=== PATIENT | female | born 1995 | race Caucasian/White ===

== ENCOUNTER 2024-06-25 12:27 | Emergency (ER) | payer OTHER, SELFPAY ==
[2024-06-25 12:43] VITALS: BP 113/77; PULSE 74; TEMP 36.8; O2SAT 100; BMI 21.3
--- NOTE | 2024-06-25 13:12 | ED_ITS ---
Documented by User: CHAZ Luong 06/25/24 14:46 HPI - Wound/Laceration General Chief Complaint: Ear Stated Complaint: DOG BITE - [facility] Time Seen by Provider: 06/25/24 12:58 Source: patient Mode of arrival: walk-in Limitations: no limitations History of Present Illness HPI narrative: 29-year-old female presents to the emergency department with complaint of injury to her left ear. Patient works as a riveter hand, was trimming a great Juan José's nails, when the dog became startled and bit her left earlobe. She has some associated pain, tenderness. Bleeding is controlled. Unsure of last tetanus shot. States the dog's rabies shot is up-to-date as of January 2024. Denies any other injury. Quality:?Penetrating trauma Severity:?Mild Timing:?Injury occurred shortly prior to arrival, constant Context: Injury occurred while at work Modifying factors:?Pain worse with palpation Associated symptoms: As above Related Data Home Medications ?Medication ?Instructions ?Recorded ?Confirmed bupropion HCl 150 mg 24 hr tablet, 150 mg PO DAILY 06/25/24 06/25/24 extended release Previous Rx's ?Medication ?Instructions ?Recorded amoxicillin 875 mg-potassium 1 tab PO BID 3 days #6 tabs 06/25/24 clavulanate 125 mg tablet Allergies Allergy/AdvReac Type Severity Reaction Status Date / Time fluconazole (From Diflucan) Allergy Intermediate Swelling Verified 06/25/24 12:42 of Lip/Tongue/Throat Review of Systems ROS Narrative CONST: Denies diaphoresis, weakness ENT: No hearing changes. + Ear pain MS: Denies arthralgias, myalgias SKIN:? +wound.? Denies swelling NEURO: Denies weakness, numbness, paresthesias PFSH PFSH Social History Little interest or pleasure in doing things: not at all Feeling down, depressed, or hopeless: not at all Exam Narrative Exam Narrative: Vital signs noted Nurses notes reviewed CONST: Nontoxic, well appearing, well nourished, in no distress.? No diaphoresis.?? HENT: normocephalic. + 2cm laceration to the anterior aspect of her right ear lobe. No through and through. + mild tenderness. Bleeding controlled. CV: < 2 sec cap refill MS: no injury NEURO: Sensory intact throughout and distal to the injury SKIN: + laceration PSYCHIATRIC: normal mood, affect Constitutional Vital Signs, click to edit/add: Last Vital Signs Temp 98.3 F 06/25/24 12:43 Pulse 74 06/25/24 12:43 Resp 16 06/25/24 12:43 BP 113/77 06/25/24 12:43 Pulse Ox 100 06/25/24 12:43 O2 Del Method Room Air 06/25/24 12:43 Course Vital Signs Vital signs: Vital Signs Temperature 98.3 F 06/25/24 12:43 Pulse Rate 74 06/25/24 12:43 Respiratory Rate 16 06/25/24 12:43 Blood Pressure 113/77 06/25/24 12:43 Pulse Oximetry 100 06/25/24 12:43 Oxygen Delivery Method Room Air 06/25/24 12:43 Temperature 98.3 F 06/25/24 12:43 Pulse Rate 74 06/25/24 12:43 Respiratory Rate 16 06/25/24 12:43 Blood Pressure 113/77 06/25/24 12:43 Pulse Oximetry 100 06/25/24 12:43 Oxygen Delivery Method Room Air 06/25/24 12:43 MDM - Wound/Laceration MDM Narrative Medical decision making narrative: This is a pleasant 29-year-old female who presents to the emergency department for evaluation of injury to her left earlobe On arrival, afebrile, vital signs stable. On exam, nontoxic, well appearing patient, in no apparent distress. Patient has 2 cm, slightly irregular laceration to the anterior aspect of her earlobe. Does not go through and through. It does go along an area where she has a piercing. Jewelry not in place at this time. Bleeding is controlled. Simple laceration closed as noted in procedure note above without complication. Bacitracin ointment was applied. Favor left earlobe laceration Foreign body, deep structure involvement less likely based on exam History and Record Review Additional records reviewed: Immunizations Re-Evaluation: Wound repaired, patient improved Disposition ? The patient was discharged. Prescriptions sent to pharmacy:[facility] Wound care instructions given both verbally and on discharge paperwork Patient advised Ibuprofen/Tylenol as needed for pain Plan: Patient will be discharged to home.? Condition at time of disposition: stable, improved.? Advised to follow up with primary provider. Advised to return for any worsening and/or development of new, concerning signs or symptoms PLEASE NOTE: Portions of the medical record may have been produced using electronic public utilities sales representative and may contain errors with respect to translation of words which may not have been identified prior to finalization of the chart. Discharge Plan Discharge Chief Complaint: Ear Clinical Impression: Acute pain of left ear Simple laceration of left ear Qualifiers: Encounter type: initial encounter Qualified Code(s): S01.312A - Laceration without foreign body of left ear, initial encounter Patient Disposition: Home, Self-Care Time of Disposition Decision: 14:02 Condition: Good Mode of Transportation: Private Vehicle Prescriptions / Home Meds: New amoxicillin-pot clavulanate 875-125 mg tablet 1 tab PO BID 3 Days Qty: 6 0RF No Action bupropion HCl 150 mg tablet extended release 24 hr 150 mg PO DAILY Print Language: Norwegian Instructions: Laceration (DC) Additional Instructions: Laceration, Sutures ? You have been treated for a laceration (cut). ? Follow up with your doctor OR come back here OR go to the nearest Emergency Department to have your sutures (stitches) taken out. Sutures should be taken out in: 7-10 days. ? Use the following wound care instructions: Keep the wound clean and dry for the next 24 hours. You can wash the wound gently with soap and water. DO NOT allow your wound to soak in water (don?t do the dishes or go swimming, for example). You can shower, but do not rub your stitches too hard. Let the wound dry before putting another bandage on. Take off old dressings every day. Then put on a clean, dry dressing. If the bandage sticks to the wound, slightly moisten it with water. This way, it can come off more easily. You can wash the wound gently with soap and water. To help remove a scab, cleanse the area with a mixture of half hydrogen peroxide and half water. This will also help us to take out the sutures later. Allow the area to dry completely before putting on a new bandage. Unless you receive instructions not to do so, you can place a thin layer of antibiotic ointment over the wound. You can buy Polysporin?, Bacitracin?, or Neosporin? at the store. Neosporin? can sometimes cause irritation to your skin. If this happens, stop using it and switch to another topical (surface) antibiotic. If needed, put a clean, dry bandage over the wound to protect it. ? Keep the affected area elevated (lifted) for the next 24 hours. This will decrease swelling and pain. You may also want to put ice on the area. By applying ice to the affected area, swelling and pain can be reduced. Place some ice cubes in a re-sealable (Ziploc?) bag and add some water. Put a thin washcloth between the bag and the skin. Apply the ice bag to the area for at least 20 minutes. Do this at least 4 times per day. It is OK to use the ice more frequently and for longer periods of time. DO NOT APPLY ICE DIRECTLY TO THE SKIN! ? If you had a local anesthetic, it will wear off in about 2 hours. Until then, be careful not to hurt yourself because of having less feeling in the area. ? YOU SHOULD SEEK MEDICAL ATTENTION IMMEDIATELY, EITHER HERE OR AT THE NEAREST EMERGENCY DEPARTMENT, IF ANY OF THE FOLLOWING OCCURS: You see redness or swelling. There are red streaks going up from the injured area. The wound smells bad or has a lot of drainage. You have fever (temperature higher than 100.4?F / 38?C), chills, worse pain and / or swelling. ? ?BE SURE TO: Call the Doctor today (or tomorrow AM) for appointment. Call us or return for any questions\problems. Return to Emergency at anytime if you are worse. Have your prescription(s) filled right now. WOUND CARE: Have your sutures removed in 7-10 days. Keep wound clean, dry, and covered. Use peroxide once a day to help remove build up. Vitamin A&D ointment or Vitamin E lotion after sutures are removed.? Massage in. Referrals: [facility] [Primary Care Provider] - 1 week Discharge Date/Time: 06/25/24 14:15 Procedures ED Laceration Laceration left ear lobe: Site: face (left ear lobe) Side (if applicable): left Size (cm): 2 Description: irregular and clean Depth: simple, single layer Anesthetic used: lidocaine 1% Anesthesia technique: local infiltration Amount (ml): 1 Pre-repair: wound explored, irrigated extensively and deep structures intact Skin layer closed with: other (Prolene) Size (cm): 6-0 Number of sutures: 4 Technique: simple, interrupted Additional comments: Patient does have a piercing in the area of her laceration. Erythematous integrity of the piercing maintain while putting the sutures in place Documented by User: Pankaj Beck MD 06/25/24 14:55 HPI - Wound/Laceration General Chief Complaint: Ear Stated Complaint: DOG BITE - C Time Seen by Provider: 06/25/24 12:58 Related Data Home Medications ?Medication ?Instructions ?Recorded ?Confirmed bupropion HCl 150 mg 24 hr tablet, 150 mg PO DAILY 06/25/24 06/25/24 extended release Previous Rx's ?Medication ?Instructions ?Recorded amoxicillin 875 mg-potassium 1 tab PO BID 3 days #6 tabs 06/25/24 clavulanate 125 mg tablet Allergies Allergy/AdvReac Type Severity Reaction Status Date / Time fluconazole (From Diflucan) Allergy Intermediate Swelling Verified 06/25/24 12:42 of Lip/Tongue/Throat PFSH PFSH Social History Little interest or pleasure in doing things: not at all Feeling down, depressed, or hopeless: not at all Exam Constitutional Vital Signs, click to edit/add: Last Vital Signs Temp 98.3 F 06/25/24 12:43 Pulse 74 06/25/24 12:43 Resp 16 06/25/24 12:43 BP 113/77 06/25/24 12:43 Pulse Ox 100 06/25/24 12:43 O2 Del Method Room Air 06/25/24 12:43 Course Vital Signs Vital signs: Vital Signs Temperature 98.3 F 06/25/24 12:43 Pulse Rate 74 06/25/24 12:43 Respiratory Rate 16 06/25/24 12:43 Blood Pressure 113/77 06/25/24 12:43 Pulse Oximetry 100 06/25/24 12:43 Oxygen Delivery Method Room Air 06/25/24 12:43 Temperature 98.3 F 06/25/24 12:43 Pulse Rate 74 06/25/24 12:43 Respiratory Rate 16 06/25/24 12:43 Blood Pressure 113/77 06/25/24 12:43 Pulse Oximetry 100 06/25/24 12:43 Oxygen Delivery Method Room Air 06/25/24 12:43 MDM - Wound/Laceration MDM Narrative Medical decision making narrative: This is a pleasant 29-year-old female who presents to the emergency department for evaluation of injury to her left earlobe On arrival, afebrile, vital signs stable. On exam, nontoxic, well appearing patient, in no apparent distress. Patient has 2 cm, slightly irregular laceration to the anterior aspect of her earlobe. Does not go through and through. It does go along an area where she has a piercing. Jewelry not in place at this time. Bleeding is controlled. Simple laceration closed as noted in procedure note above without complication. Bacitracin ointment was applied. Favor left earlobe laceration Foreign body, deep structure involvement less likely based on exam History and Record Review Additional records reviewed: Immunizations Re-Evaluation: Wound repaired, patient improved Disposition ? The patient was discharged. Prescriptions sent to pharmacy:[facility] Wound care instructions given both verbally and on discharge paperwork Patient advised Ibuprofen/Tylenol as needed for pain Plan: Patient will be discharged to home.? Condition at time of disposition: stable, improved.? Advised to follow up with primary provider. Advised to return for any worsening and/or development of new, concerning signs or symptoms PLEASE NOTE: Portions of the medical record may have been produced using electronic public utilities sales representative and may contain errors with respect to translation of words which may not have been identified prior to finalization of the chart. I, Dr Beck, have reviewed the above progress note and course of action in the ER; agree with the above. I have personally gone over history and physical, and discussed disposition and treatment plan with the PA. Discharge Plan Discharge Chief Complaint: Ear Clinical Impression: Acute pain of left ear Simple laceration of left ear Qualifiers: Encounter type: initial encounter Qualified Code(s): S01.312A - Laceration without foreign body of left ear, initial encounter Patient Disposition: Home, Self-Care Time of Disposition Decision: 14:02 Condition: Good Mode of Transportation: Private Vehicle Prescriptions / Home Meds: New amoxicillin-pot clavulanate 875-125 mg tablet 1 tab PO BID 3 Days Qty: 6 0RF No Action bupropion HCl 150 mg tablet extended release 24 hr 150 mg PO DAILY Print Language: Norwegian Instructions: Laceration (DC) Additional Instructions: Laceration, Sutures ? You have been treated for a laceration (cut). ? Follow up with your doctor OR come back here OR go to the nearest Emergency Department to have your sutures (stitches) taken out. Sutures should be taken out in: 7-10 days. ? Use the following wound care instructions: Keep the wound clean and dry for the next 24 hours. You can wash the wound gently with soap and water. DO NOT allow your wound to soak in water (don?t do the dishes or go swimming, for example). You can shower, but do not rub your stitches too hard. Let the wound dry before putting another bandage on. Take off old dressings every day. Then put on a clean, dry dressing. If the bandage sticks to the wound, slightly moisten it with water. This way, it can come off more easily. You can wash the wound gently with soap and water. To help remove a scab, cleanse the area with a mixture of half hydrogen peroxide and half water. This will also help us to take out the sutures later. Allow the area to dry completely before putting on a new bandage. Unless you receive instructions not to do so, you can place a thin layer of a ntibiotic ointment over the wound. You can buy Polysporin?, Bacitracin?, or Neosporin? at the store. Neosporin? can sometimes cause irritation to your skin. If this happens, stop using it and switch to another topical (surface) antibiotic. If needed, put a clean, dry bandage over the wound to protect it. ? Keep the affected area elevated (lifted) for the next 24 hours. This will decrease swelling and pain. You may also want to put ice on the area. By applying ice to the affected area, swelling and pain can be reduced. Place some ice cubes in a re-sealable (Ziploc?) bag and add some water. Put a thin washcloth between the bag and the skin. Apply the ice bag to the area for at least 20 minutes. Do this at least 4 times per day. It is OK to use the ice more frequently and for longer periods of time. DO NOT APPLY ICE DIRECTLY TO THE SKIN! ? If you had a local anesthetic, it will wear off in about 2 hours. Until then, be careful not to hurt yourself because of having less feeling in the area. ? YOU SHOULD SEEK MEDICAL ATTENTION IMMEDIATELY, EITHER HERE OR AT THE NEAREST EMERGENCY DEPARTMENT, IF ANY OF THE FOLLOWING OCCURS: You see redness or swelling. There are red streaks going up from the injured area. The wound smells bad or has a lot of drainage. You have fever (temperature higher than 100.4?F / 38?C), chills, worse pain and / or swelling. ? ?BE SURE TO: Call the Doctor today (or tomorrow AM) for appointment. Call us or return for any questions\problems. Return to Emergency at anytime if you are worse. Have your prescription(s) filled right now. WOUND CARE: Have your sutures removed in 7-10 days. Keep wound clean, dry, and covered. Use peroxide once a day to help remove build up. Vitamin A&D ointment or Vitamin E lotion after sutures are removed.? Massage in. Referrals: [facility] [Primary Care Provider] - 1 week Discharge Date/Time: 06/25/24 14:15
[2024-06-25] MEDS: ADACEL DIPH,PERTUSS(ACELL),TET VAC/PF 0.5 ML ADULT SYRINGE IM (13:20)
[2024-06-25] MEDS: AMOXICILLIN/POT CLAV 875-125 MG TABLET 1 TAB PO (13:20)
[2024-06-25] MEDS: BACITRACIN 0.9 GM PACKET 1 PACKET TOPICAL (13:25)
[2024-06-25] MEDS: LIDOCAINE HCL 1% 100 MG/10 ML MDV INJ (13:25)
== END 2024-06-25 14:15 | disposition home or self-care (01) ==
PROVIDERS: Emergency Provider Emergency Medicine
DX: S01.312A Laceration without foreign body of left ear, initial encounter (principal); W54.0XXA Bitten by dog, initial encounter; Z23 Encounter for immunization
CPT/HCPCS: 12011; 90471; 90715; 99283